=== PATIENT | male | born 1985 | race Caucasian/White ===

== ENCOUNTER 2017-07-09 17:32 | Emergency (ER) | payer OTHER ==
[~2017-07-09] VITALS: Ht 180.3 cm; Wt 70.8 kg
[2017-07-09] MEDS ORDERED: SODIUM CHLORIDE 0.9% 1,000 ML IV ONE (19:22)
[2017-07-09 20:50] LABS: Eosinophils # (auto) 0.9 uL; Hematocrit 39.8 % (41.0-53.0); Mean Corpuscular Volume 86.7 fL (80.0-100.0); Nucleated Red Blood Cells % 0.1 %; Red Blood Cells 4.59 10^6/uL (4.5-5.90)
[2017-07-09 20:52] LABS: Basophils # (auto) 0.2 uL; Basophils % (auto) 1.5 % (0.0-2.0); Eosinophils % (auto) 6.3 % (0.0-7.0); Hemoglobin 13.3 g/dL (13.5-17.5); Lymphocytes # (auto) 3.8 uL; Lymphocytes % (auto) 27.3 % (10.0-50.0); Mean Corpuscular Hgb Conc. 33.4 g/dL (32.0-36.0); Monocytes # (auto) 0.8 uL; Monocytes % (auto) 5.8 % (0.0-12.0); Neutrophils # (auto) 8.1 uL; Neutrophils % (auto) 59.1 % (37.0-80.0); Platelet Count (auto) 594 10^3/uL (140-450); White Blood Cell 13.8 10^3/uL (4.4-10.8)
[2017-07-09 20:54] LABS: INR 1.01 (0.9-1.15); Partial Thromboplastin Time 28.2 sec (22.64-33.71)
[2017-07-09 20:58] LABS: Albumin 3.7 g/dL (3.4-5.0); Calcium 9.2 mg/dL (8.5-10.1); Magnesium 2.5 mg/dL (1.6-2.6); Potassium 4.4 mmol/L (3.5-5.1)
[2017-07-09 21:01] LABS: BUN/Creatinine Ratio 14.8
[2017-07-09 21:04] LABS: Bilirubin, Total 0.2 mg/dL (0.2-1.0); Total Protein 7.6 g/dL (6.4-8.2)
[2017-07-10] MEDS ORDERED: SODIUM CHLORIDE 0.9% 1,000 ML IV ONE
[2017-07-10 00:34] VITALS: BP 100/45
== END 2017-07-10 00:02 | disposition home or self-care (01) ==
LOC: ER 17:33
DX: E86.0 Dehydration (principal)
CPT/HCPCS: 36415; 71046; 76705; 80053; 82962; 83735; 84443; 85025; 85610; 85730; 93005; 94761; 96360; 99285; J7030